=== PATIENT | male | born 1980 | race Caucasian/White ===

== ENCOUNTER 2020-02-08 02:27 | Inpatient (IN) | payer OTHER, SELFPAY ==
[2020-02-08] MEDS ORDERED: HYDROcodone/Acetaminophen 5/325 mg Tablet PO PRN (03:25)
[2020-02-08] MEDS ORDERED: Acetaminophen 325 MG TAB PO PRN (03:25)
[2020-02-08] MEDS ORDERED: Acetaminophen/Codeine 30-300mg Tablet PO PRN (03:25)
[2020-02-08] MEDS ORDERED: traMADol HCl 50 MG TAB PO PRN (03:25)
[2020-02-08] MEDS ORDERED: Ondansetron PF 4 MG/2 ML Vial IVP PRN (03:28)
[2020-02-08] MEDS ORDERED: hydrALAZINE 20 MG/ML VIAL SLOW IVP PRN (03:28)
[2020-02-08] MEDS ORDERED: diphenhydrAMINE 50 MG/ML VIAL IVP PRN (03:28)
[2020-02-08] MEDS ORDERED: Labetalol HCl 100 MG/20 ML VIAL SLOW IVP PRN (03:31)
[2020-02-08] MEDS ORDERED: Boostrix 0.5 ML VIAL ONE (03:53)
[2020-02-08] MEDS ORDERED: Sodium Chloride 0.9% 1,000 ML IV SCH (04:00)
[2020-02-08 05:53] VITALS: BMI 20.5
[2020-02-08] MEDS: Morphine 2 MG/ML VIAL SLOW IVP PRN ×2 (09:39→11:12)
[2020-02-08 11:27] VITALS: BP 144/86; TEMP 97.6
--- NOTE | 2020-02-08 11:41 | MRI ---
MRI brain noncontrast HISTORY: Intracranial hemorrhage. Aneurysm. FINDINGS: Exam was not completed. Axial flair, T1, gradient echo, and diffusion-weighted images were obtained. Hyperdense fluid in the basilar cisterns correlates with the hemorrhage on recent CT. Allowing for differences in technique, there has been no significant progression. At the right anteri or lateral cortex, a 0.5 cm rounded focus of blooming artifact on the diffusion weighted images correlates with a tiny hyperintense focus on the T1 and FLAIR images and likely represents a cavernom a. There is no mass effect or shift of midline structures. On axial image 9, a sagittally oriented 0.4 cm smoothly marginated focus of decreased signal on the T 1 and FLAIR images is at the site of suspected left MCA aneurysm on the recent CTA. Just medial to the left temporal lobe near the superior orbital fissure. IMPRESSION : Confirmation of intracranial hemorrhage. Favored to not have increased since the prior CT scan. Left MCA aneurysm likely visualized just medial to the left temporal lobe.
[2020-02-08 14:23] LABS: SARS-CoV-2 MS2 Positive; SARS-CoV-2 N Gene Negative; SARS-CoV-2 S Gene Negative; SARS-CoV-2 by NAA Not Detected (NotDetected); SARS-CoV-2 orf1ab Negative
--- NOTE | 2020-02-08 18:36 | HP ---
Mr. Ruffin was transferred following the use of methamphetamine and acute thunderclap headache. Head CT in [place] along with CTA demonstrated aneurysmal pattern, subarachnoid hemorrhage, a Kim 3 grade. The patient remained, however, good grade Quintero and [place] with only headache. He was neurologically intact, transferred here on my review. He has a left MCA aneurysm approximately 6 mm, appears to be bilobed and in the region of the anterior temporal branch takeoff. The patient needs formal cerebral angiography for diagnostic and therapeutic purposes and given he was admitted here in the middle of the night, I have arranged for transfer to a center expeditiously that can deal with his aneurysm rupture. I have spoken to [facility] in [place] and they have accepted the patient. He is being life flighted there Job ID: [id number]
--- NOTE | 2020-02-10 05:59 | PQF ---
CLINICAL DOCUMENTATION CLARIFICATION FORM: Dear : Larry Good Date / Time: 02/10/2020 05:57 Please exercise your independent, professional judgment in responding to the clarification form. Clinical indicators are provided on the bottom of this form for your review Can you please clarify the etiology of patients Subarachnoid hemorrhage? Please check appropriate box(es): [ ] MCA Aneurysm [ ] Poisoning of methamphetamine use [ ] Other diagnosis, please specify: [ ] Unable to determine Physician Signature: Date/Time: For continuity of documentation, please document condition throughout progress notes and discharge summary. Thank You. To be completed by CDI/Coding staff for physician review: Present Clinical Indicators - Signs / Symptoms / Labs Results and Location in Medical Record [x] CTA demonstrated aneurysmal pattern,subarachnoid hemorrhage, a Kim 3 grade HP 02/07 [x] NIHSS: 0 ED Notes 02/07 [x] MRI of brain: Left MCA aneurysm MRI of brain 02/07 [x] Patient having headache today after taking meth ED Notes 02/07 [x] aneurysm rupture HP 02/07 Present Risk Factors Results and Location in Medical Record [x] Smoker ED Notes 02/07 [x] Left MCA aneurysm HP 02/07 [x] Methamphetamine use HP 02/07 Present Treatments Results and Location in Medical Record [x] MRI of brain Collected 02/07 [x] Tylenol 650mg oral MAR 02/07 [x] Morphine 2mg IV AUG 04 CDS/Technology Teacher Signature: Deisi Parker Phone #: [phone] Date/Time: 02/10/20 05:57 This is a permanent part of the Medical Record [facility]
== END 2020-02-08 12:37 | disposition short-term general hospital (02) | DRG 66 ==
LOC: ERS 02:27 → 2SE 03:19
PROVIDERS: ADMIT Surgery; ATTEND Surgery
PROC: 3E0234Z Introduction of Serum, Toxoid and Vaccine into Muscle, Percutaneous Approach (ICD-10-PCS; principal; 2020-02-08)
DX: I60.12 Nontraumatic subarachnoid hemorrhage from left middle cerebral artery (principal); Z23 Encounter for immunization; F41.9 Anxiety disorder, unspecified; F17.210 Nicotine dependence, cigarettes, uncomplicated; Z20.828 Contact with and (suspected) exposure to other viral communicable diseases; R29.700 NIHSS score 0; Z90.49 Acquired absence of other specified parts of digestive tract; Z79.899 Other long term (current) drug therapy
CPT/HCPCS: 70551; 87635; 90715; 99285; J2270; J2405; U0003